=== PATIENT | male | born 1990 | race African-American/Black ===

== ENCOUNTER 2024-10-23 15:18 | Emergency (ER) | payer OTHER ==
[2024-10-23 15:58] LABS: SARS-CoV-2 Antigen CONTROL BLUE LINE VIS/BG OK; SARS-CoV-2 Antigen Rapid Res Negative (Negative)
--- NOTE | 2024-10-23 16:11 | EDPHYS ---
Physician Documentation [facility] Name: Wei Patton Age: 34 yrs Sex: Male : 1990 Arrival Date: 10/23/2024 Time: 15:18 Bed 14 Private MD: ED Physician Victor Hugo Tran HPI: 10/23 15:39 This 34 yrs old Black Male presents to ER via Ambulatory with complaints of Flu ec2 Symptoms. 15:39 Patient arrives today for evaluation of upper respiratory symptoms. Patient been having ec2 cough and congestion as well as headache. No vomiting, no diarrhea.. Historical: - Allergies: 15:31 No Known Allergies; cm10 - Home Meds: 15:31 None [Active]; cm10 - PMHx: 15:31 None; cm10 - PSHx: 15:31 None; cm10 - Immunization history:: Adult Immunizations up to date. - Infectious Disease History:: Denies. - Social history:: Smoking status: Patient reports the use of cigarette tobacco products, denies chronic smoking, but will smoke occasionally. ROS: 15:39 Constitutional: as per hpi ec2 Exam: 15:39 Constitutional: GEN: NAD Head: atraumatic Eyes: EOMI Ears: External ears are ec2 normal. CV: regular rate LUNGS: no respiratory distress, no wheezes or rales or rhonchi ABD: non-distended SKIN: no evidence of rashes MSK: no evidence of trauma Vital Signs: 15:30 BP 119 / 73; Pulse 91; Resp 17; Temp 99.5(O); Pulse Ox 98% on R/A; Weight 106.59 kg; cm10 Height 5 ft. 7 in. ; Pain 7/10; 16:48 BP 115 / 72; Pulse 90; Resp 16; Temp 98.8; Pulse Ox 99% ; me1 15:30 Body Mass Index 36.81 (106.59 kg, 170.18 cm) cm10 15:30 Pain Scale: Adult cm10 MDM: 15:25 Medical Screening Exam initiated ec2 15:39 Data reviewed: vital signs, nurses notes. ED course: Patient arrives today for upper ec2 respiratory symptoms. Examination is revealing for well-appearing nontoxic hemodynamically stable individuals otherwise in no acute distress. Suspect viral infection, will treat the patient with symptomatic medications. Doubt pneumonia given lack of focal lung sounds. Will forego chest x-ray accordingly.. 16:00 ED course: Patient is positive for flu. Will recommend symptomatic management have the ec2 patient follow-up PCP. Return precautions given.. 10/23 15:25 Order name: Influenza Screen (a \T\ B); Complete Time: 15:57 ec2 10/23 15:25 Order name: SARS RAPID; Complete Time: 16:00 ec2 Administered Medications: 16:39 Drug: metoCLOPramide IM 10 mg IM once Route: IM; Site: right deltoid; me1 16:50 Follow up: Response: No adverse reaction; Nausea is decreased me1 16:39 Drug: Ketorolac IM 30 mg IM once Route: IM; Site: left deltoid; me1 16:49 Follow up: Response: No adverse reaction; Pain is decreased me1 16:39 Drug: Acetaminophen PO 1000 mg PO once Route: PO; me1 16:49 Follow up: Response: No adverse reaction; Temperature is decreased; Pain is decreased me1 16:40 Drug: Tessalon Perle PO 200 mg PO once Route: PO; me1 16:50 Follow up: Response: No adverse reaction me1 Disposition Summary: 10/23/24 16:11 Discharge Ordered Notes: Location: Home ec2 Condition: Stable ec2 Diagnosis - Viral infection, unspecified ec2 - Influenza due to identified novel influenza A virus ec2 Followup: ec2 - With: Private Physician - When: - Reason: Recheck today's complaints Discharge Instructions: - Discharge Summary Sheet ec2 - Viral Illness, Adult ec2 Forms: - Work release form me1 - Medication Reconciliation Form ec2 - Antibiotic Education ec2 - Prescription Opioid Use ec2 - Patient Portal Instructions ec2 - Leadership Thank You Letter ec2 Prescriptions: - Compazine 10 mg Oral Tablet - take 1 tablet ORAL route every 8 hours As needed; 20 tablet; Refills: 0, ec2 Product Selection Permitted - Tessalon Perles 100 mg Oral Capsule - take 1 capsule ORAL route every 8 hours As needed; 15 capsule; Refills: 0, ec2 Product Selection Permitted Signatures: Dispatcher [employer] Farhana Slaughter RN RN cm10 Cherie Lau RN RN me1 Victor Hugo Tran MD MD ec2
--- NOTE | 2024-10-23 16:11 | ER ---
Nurse's Notes [facility] Name: Wei Patton Age: 34 yrs Sex: Male : 1990 Arrival Date: 10/23/2024 Time: 15:18 Bed 14 Private MD: Diagnosis: Viral infection, unspecified;Influenza due to identified novel influenza A virus Presentation: 10/23 15:30 Chief complaint: Patient states: Headache, cough, congestion and pain behind eyes onset cm10 this morning. Coronavirus screen: Client denies travel out of the [place] in the last 14 days. Ebola Screen: Patient denies travel to an Ebola-affected area in the 21 days before illness onset. Initial Sepsis Screen: Does the patient meet any 2 criteria? HR > 90 bpm. Does the patient have a suspected source of infection? No. Patient's initial sepsis screen is negative. Risk Assessment: Do you want to hurt yourself or someone else? Patient reports no desire to harm self or others. Onset of symptoms was October 23, 2024. 15:30 Method Of Arrival: Ambulatory cm10 15:30 Acuity: MESHA 4 cm10 Triage Assessment: 15:31 General: Appears in no apparent distress. uncomfortable, Behavior is calm, cooperative. cm10 Pain: Complains of pain in head, right eye and left eye Pain currently is 7 out of 10 on a pain scale. Quality of pain is described as aching, pressure. Neuro: No deficits noted. Level of Consciousness is awake, alert, obeys commands, Oriented to person, place, time, situation, Appropriate for age. Respiratory: No deficits noted. Airway is patent Respiratory effort is even, unlabored, Respiratory pattern is regular, symmetrical. Historical: - Allergies: 15:31 No Known Allergies; cm10 - Home Meds: 15:31 None [Active]; cm10 - PMHx: 15:31 None; cm10 - PSHx: 15:31 None; cm10 - Immunization history:: Adult Immunizations up to date. - Infectious Disease History:: Denies. - Social history:: Smoking status: Patient reports the use of cigarette tobacco products, denies chronic smoking, but will smoke occasionally. Screenin:[address] [facility] ED Fall Risk Assessment (Adult) History of falling in the last 3 months, me1 including since admission No falls in past 3 months (0 pts) Confusion or Disorientation No (0 pts) Intoxicated or Sedated No (0 pts) Impaired Gait No (0 pts) Mobility Assist Device Used No (0 pt) Altered Elimination No (0 pt) Score/Fall Risk Level 0 - 2 = Low Risk Maintained a safe environment, Provided non-skid footwear, Hourly rounding (assess needs \T\ fall precautionary measures) done. Abuse screen: Denies threats or abuse. Nutritional screening: No deficits noted. Tuberculosis screening: No symptoms or risk factors identified. Assessment: 15:42 General: Appears ill, well groomed, well developed, well nourished, Behavior is calm, me1 cooperative, appropriate for age, Reports Headache, cough, congestion and pain behind eyes onset this morning. Pain: Complains of pain in left eye and right eye and head Pain does not radiate. Pain currently is 4 out of 10 on a pain scale. Quality of pain is described as pressure, Pain began gradually, 4 hours ago. Is continuous. Neuro: Level of Consciousness is awake, alert, obeys commands, Oriented to person, place, time, situation, Appropriate for age. Neuro: Reports headache. Cardiovascular: Patient's skin is warm and dry. Respiratory: Reports cough that is since this morning. GI: No signs and/or symptoms were reported involving the gastrointestinal system. : No signs and/or symptoms were reported regarding the genitourinary system. EENT: Reports nasal congestion. Derm: Skin is intact, is healthy with good turgor, Skin is pink, warm \T\ dry. Musculoskeletal: No signs and/or symptoms reported regarding the musculoskeletal system. 16:41 General: Discharge delayed for med wait time.. me1 Vital Signs: 15:30 BP 119 / 73; Pulse 91; Resp 17; Temp 99.5(O); Pulse Ox 98% on R/A; Weight 106.59 kg; cm10 Height 5 ft. 7 in. ; Pain 7/10; 16:48 BP 115 / 72; Pulse 90; Resp 16; Temp 98.8; Pulse Ox 99% ; me1 15:30 Body Mass Index 36.81 (106.59 kg, 170.18 cm) cm10 15:30 Pain Scale: Adult cm10 ED Course: 15:20 Patient arrived in ED. al6 15:25 Victor Hugo Tran MD is Attending Physician. ec2 15:31 Triage completed. cm10 15:31 Arm band placed on right wrist. Patient placed in an exam room, on a stretcher. cm10 15:35 Cherie Lau, RN is Primary Nurse. me1 15:41 COVID swab sent to lab. Flu and/or RSV swab sent to lab. me1 15:42 Patient has correct armband on for positive identification. Bed in low position. Call me1 light in reach. Side rails up X2. Provided Education on: POC. Verbalized understanding.. Client placed on continuous cardiac and pulse oximetry monitoring. NIBP monitoring applied. Pulse ox on. NIBP on. 15:42 No provider procedures requiring assistance completed. Patient did not have IV access me1 during this emergency room visit. Administered Medications: 16:39 Drug: metoCLOPramide IM 10 mg IM once Route: IM; Site: right deltoid; me1 16:50 Follow up: Response: No adverse reaction; Nausea is decreased me1 16:39 Drug: Ketorolac IM 30 mg IM once Route: IM; Site: left deltoid; me1 16:49 Follow up: Response: No adverse reaction; Pain is decreased me1 16:39 Drug: Acetaminophen PO 1000 mg PO once Route: PO; me1 16:49 Follow up: Response: No adverse reaction; Temperature is decreased; Pain is decreased me1 16:40 Drug: Tessalon Perle PO 200 mg PO once Route: PO; me1 16:50 Follow up: Response: No adverse reaction me1 Medication: 15:42 VIS not applicable for this client. me1 Outcome: 16:11 Discharge ordered by . ec2 16:57 Discharged to home ambulatory, with family, me1 16:57 Condition: stable 16:57 Discharge instructions given to patient, family, Instructed on discharge instructions, follow up and referral plans. medication usage, Demonstrated understanding of instructions, follow-up care, medications, Prescriptions given X 2, 16:58 Patient left the ED. me1 Signatures: Farhana Dumont RN RN cm10 Cherie Lau, ACE BELLO me1 Victor Hugo Tran MD MD ec2 Celeste Castaneda6 Corrections: (The following items were deleted from the chart) 15:42 15:30 Chief complaint: Patient states: Headache, cough, congestion and pain behind eyes me1 onset this morning. cm10
[2024-10-23] MEDS ORDERED: BENZONATATE 100 MG CAP PO ONE (16:32)
[2024-10-23] MEDS ORDERED: KETOROLAC 30 MG/ML INJ ONE (16:32)
[2024-10-23] MEDS ORDERED: METOCLOPRAMIDE 10 MG/2mL INJ ONE (16:32)
[2024-10-23] MEDS ORDERED: ACETAMINOPHEN 500 MG TAB ONE (16:32)
[2024-10-23 18:06] VITALS: BP 115/72; TEMP 98.8; O2SAT 99
== END 2024-10-23 16:58 | disposition home or self-care (01) ==
LOC: ER 15:18
DX: J10.1 Influenza due to other identified influenza virus with other respiratory manifestations (principal); F17.210 Nicotine dependence, cigarettes, uncomplicated; Z11.52 Encounter for screening for COVID-19
CPT/HCPCS: 36415; 87804 ×2; 96372; 99284; 87811; J2765

== ENCOUNTER 2025-05-24 11:02 | Emergency (ER) | payer OTHER ==
[2025-05-24] MEDS ORDERED: ONDANSETRON 4 MG/2 ML VIAL ONE (11:37)
[2025-05-24] MEDS ORDERED: KETOROLAC 30 MG/ML INJ ONE (11:37)
[2025-05-24] MEDS ORDERED: NA CHLORIDE 0.9% 1,000 ML ONE ×2 (11:38→12:23)
[2025-05-24] MEDS ORDERED: MORPHINE 4 MG/ML SYR ONE (11:38)
[2025-05-24 11:55] LABS: Absolute Lymphocytes (CBC) 1.7 K/uL (0.7-4.9); Hematocrit 50.6 % (39.6-49.0); Hemoglobin 16.9 g/dL (13.6-17.9); MCH 31.1 pg (27.0-35.0); MCHC 33.4 g/dL (32.0-36.0); MCV 92.9 fL (80-100); MPV 8.2 fL (7.6-11.3); Nucleated RBC Absolute Count 0.0 (0-0); Nucleated Red Blood Cells % 0.1 % (0-0); RBC Red Blood Cell Count 5.45 M/uL (4.33-5.43); White Blood Count 5.70 thou/uL (4.3-10.9)
[2025-05-24 12:12] LABS: ALT/SGPT 27.0 U/L (16-61); AST/SGOT 18.0 U/L (15-37); Albumin 4.1 g/dL (3.4-5.0); Albumin/Globulin Ratio 1.1 (1.1-1.8); Alkaline Phosphatase 61.0 U/L (45-117); Anion Gap 11.4 mEq/L (5.0-15.0); BUN Blood Urea Nitrogen 14.0 mg/dL (7-18); Globulin 3.7 g/dL (2.3-3.5); Glucose Level 137.0 mg/dL (74-106); Lipase 178.0 U/L (13-75); Potassium 3.4 mEq/L (3.5-5.1)
--- NOTE | 2025-05-24 12:17 | RAD REPORT ---
EXAMINATION: CT ABDOMEN AND PELVIS WITH CONTRAST CLINICAL INDICATION: Abdominal pain TECHNIQUE: CT abdomen and pelvis was performed, after the administration of 100 cc Isovue-300.. Sagit pepe and coronal reconstructions were obtained. One or more of the following dose reduction techniques were used: Automated exposure control, adjustment of the mA and kV according to patient si ze, and iterative reconstruction. Unless otherwise specified, incidental findings do not require dedicated imaging follow-up. [id number]. Oral contrast was not given which limits evaluation of bowel and appendix. COMPARISON: .None FINDINGS: Several tiny low-density lesions within the liver are too small to characterize but probably benign. Delay of concentration of contrast within the right kidney. Mild right hydronephrosis. 3 mm calculus mid right ureter. Spleen, left kidney, pancreas and adrenals unremarkable No evidence of diverticulitis. : IMPRESSION: 3 mm calculus mid right ureter results in mild right hydronephrosis
[2025-05-24] MEDS ORDERED: TAMSULOSIN 0.4 MG SR CAP ONE (12:22)
[2025-05-24] MEDS ORDERED: HYDROMORPHONE HCL 1 MG/ML INJ ONE (12:22)
[2025-05-24] MEDS ORDERED: MAGNESIUM SULFATE 1 gm IVPB 1 GM/100 ML BAG IV ONE (12:23)
[2025-05-24 12:53] LABS: Sqamous Epithelial <5 /HPF (None Seen); Urine Culture Reflex Order REFLEXED; Urine Microscopic Reflex YN ORDER UMIC
[2025-05-24] MEDS ORDERED: DIPHENHYDRAMINE 50 MG/ML VIAL ONE (13:12)
--- NOTE | 2025-05-24 13:30 | EDPHYS ---
Physician Documentation [facility] Name: Wei Patton Age: 35 yrs Sex: Male : 1990 Arrival Date: 05/24/2025 Time: 11:02 Bed 2 Private MD: ED Physician Jean Melendrez HPI: 05/24 11:31 This 35 yrs old Black Male presents to ER via Ambulatory with complaints of Flank Pain. sb4 11:31 Patient reports right sided flank pain that began this morning with associated nausea sb4 and vomiting. Does have a history of kidney stones but states that this feels different. Patient is uncooperative during triage secondary to pain and cannot provide much further history. Historical: - Allergies: 11:14 No Known Allergies; ss - Home Meds: 11:14 None [Active]; ss - PMHx: 11:14 kidney stones; ss - PSHx: 11:14 None; ss - Infectious Disease History:: Denies. - Social history:: Smoking status: Patient reports the use of cigarette tobacco products, denies chronic smoking, but will smoke occasionally. ROS: 11:32 Constitutional: Negative for fever, chills, and weight loss, sb4 11:32 Back: Positive for pain at rest, flank pain, on the right, 11:32 All other systems are negative, Exam: 11:32 Head/Face: Normocephalic, atraumatic. Eyes: Extra-ocular motions intact. Periorbital sb4 areas with no swelling, redness, or edema. ENT: Mucous membranes moist. Cardiovascular: Regular rate and rhythm with a normal S1 and S2. Respiratory: No increased work of breathing, no retractions or nasal flaring. Abdomen/GI: Soft, non-tender, no distension. Skin: Warm, dry with normal turgor. Normal color with no rashes, no lesions, and no evidence of cellulitis. 11:32 Constitutional: The patient appears alert, awake, in obvious pain, uncomfortable, tearful 11:32 Back: CVA tenderness, that is moderate, is noted on the right, Vital Signs: 11:13 BP 120 / 70; Pulse 76; Resp 24; Temp 97(TE); Pulse Ox 100% on R/A; Weight 81.65 kg; ss Height 5 ft. 9 in. ; Pain 10/10; 11:13 Body Mass Index 26.58 (81.65 kg, 175.26 cm) ss 11:13 Pain Scale: Adult ss MDM: 11:14 Medical Screening Exam initiated sb4 11:32 Differential diagnosis: nephrolithiasis, pyelonephritis, UTI. sb4 12:20 Independent interpretation of the following test(s) in the Emergency Department CT sb4 Scan: My interpretation is My interpretation of this abdominal pelvis CT scan is small stone in the right mid ureter. 13:29 Data reviewed: vital signs, nurses notes, lab test result(s), radiologic studies, and sb4 as a result, I will discharge patient. Counseling: I had a detailed discussion with the patient and/or guardian regarding the historical points, exam findings, and any diagnostic results supporting the discharge/admit diagnosis, lab results, radiology results, the need for outpatient follow up, a urologist, to return to the emergency department if symptoms worsen or persist or if there are any questions or concerns that arise at home. Special discussion: I discussed with the patient/guardian in detail that at this point there is no indication for admission to the hospital. It is understood, however, that if the symptoms persist or worsen the patient needs to return immediately for re-evaluation. 05/24 11:16 Order name: CBC with Diff; Complete Time: 12:02 sb4 05/24 11:16 Order name: CMP; Complete Time: 12:14 sb4 05/24 11:16 Order name: Lipase; Complete Time: 12:14 sb4 05/24 11:16 Order name: UA Rfx Richard Cult if indicated; Complete Time: 12:56 sb4 05/24 12:59 Order name: Urine Culture EDMT 05/24 11:16 Order name: CT Abd/Pelvis - IV Contrast Only; Complete Time: 12:19 sb4 05/24 11:16 Order name: IV Saline Lock; Complete Time: 11:37 sb4 05/24 11:16 Order name: Labs collected and sent; Complete Time: 11:41 sb4 Administered Medications: 11:42 Drug: NS 0.9% IV 1000 ml IV at 1 bolus Per protocol; to be given as a bolus over 60 bp minutes Route: IV; Rate: 1 bolus; Site: left antecubital; 11:43 Drug: TORadol - Ketorolac IVP 15 mg IVP once Route: IVP; Site: left antecubital; bp 11:43 Drug: Ondansetron IVP 4 mg IVP once; over 2 minutes Route: IVP; Site: left antecubital; bp 11:43 Drug: morphine IVP or IV 4 mg IVP once over 4 mins Route: IVP; Infused Over: 4 mins; bp Site: left antecubital; 12:38 Drug: HYDROmorphone IVP 1 mg IVP once Route: IVP; Site: left antecubital; bp 12:38 Drug: Flomax PO 0.4 mg PO once Route: PO; bp 12:38 Drug: NS 0.9% IV 1000 ml IV at 1000 ml once; to be given as a bolus over 60 minutes bp Route: IV; Rate: 1000 ml; Site: left antecubital; 13:59 Follow up: IV Status: Completed infusion; IV Intake: 1000ml ss 12:39 Drug: Magnesium Sulfate IVPB 1 grams IVPB once over 1 hrs Route: IVPB; Infused Over: 1 bp hrs; Site: left antecubital; 13:16 Drug: diphenhydrAMINE IVP 25 mg IVP once Route: IVP; Site: left antecubital; bp 13:17 Drug: Droperidol IVP 2.5 mg IVP once Route: IVP; Site: left antecubital; bp Disposition: 05/25 08:59 Co-signature as Attending Physician, Jean Melendrez MD I agree with the assessment and raj plan of care. Disposition Summary: 05/24/25 13:29 Discharge Ordered Notes: Location: Home sb4 Problem: new sb4 Symptoms: have improved sb4 Condition: Stable sb4 Diagnosis - Calculus of kidney with calculus of ureter - right, 3mm sb4 Followup: sb4 - With: Angel Tanner MD - When: 1 week - Reason: Recheck today's complaints, Re-evaluation by your physician Discharge Instructions: - Discharge Summary Sheet sb4 - Kidney Stones sb4 Forms: - Prescription Opioid Use sb4 - Patient Portal Instructions sb4 - Leadership Thank You Letter sb4 Prescriptions: - tamsulosin 0.4 mg Oral capsule - take 1 capsule ORAL route daily; 20 capsule; Refills: 0, Product Selection sb4 Permitted - ketorolac 10 mg Oral tablet - take 1 tablet ORAL route every 6 hours as needed for pain; maximum total sb4 duration of 5 days from all oral, intranasal, or parenteral formulations; 12 tablet; Refills: 0, Product Selection Permitted - ondansetron 8 mg Oral Tablet,disintegrating - take 1 tablet ORAL route every 8 hours; 10 tablet; Refills: 0, Product sb4 Selection Permitted - Tylenol-Codeine #3 300mg-30mg Oral tablet - take 2 tablets ORAL route every 6 hours As needed; 20 tablet; Refills: 0, sb4 Product Selection Permitted Signatures: Dispatcher [employer] EDJean Harris MD MD cha Blanchard, Shelby, RN RN ss Lobo King RN RN Laurence Dela Cruz PA-C PAMelanieC sb4 Corrections: (The following items were deleted from the chart) 05/24 11:32 11:18 The patient complains of pain in the left mid back, sb4 sb4 1132 11:31 Patient reports. sb4 sb4
--- NOTE | 2025-05-24 13:30 | ER ---
Nurse's Notes [facility] Name: Wei Patton Age: 35 yrs Sex: Male : 1990 Arrival Date: 05/24/2025 Time: 11:02 Bed 2 Private MD: Diagnosis: Calculus of kidney with calculus of ureter-right, 3mm Presentation: 05/24 11:13 Chief complaint: Patient states: R flank pain that began suddenly this morning. + ss nausea. HX of kidney stones. Coronavirus screen: Client denies travel out of the [place] in the last 14 days. Ebola Screen: Patient denies exposure to infectious person. Patient denies travel to an Ebola-affected area in the 21 days before illness onset. Initial Sepsis Screen: Does the patient meet any 2 criteria? No. Patient's initial sepsis screen is negative. Does the patient have a suspected source of infection? No. Patient's initial sepsis screen is negative. Risk Assessment: Do you want to hurt yourself or someone else? Patient reports no desire to harm self or others. Onset of symptoms was May 24, 2025. 11:13 Method Of Arrival: Ambulatory ss 11:13 Acuity: MESHA 2 ss Historical: - Allergies: 11:14 No Known Allergies; ss - Home Meds: 11:14 None [Active]; ss - PMHx: 11:14 kidney stones; ss - PSHx: 11:14 None; ss - Infectious Disease History:: Denies. - Social history:: Smoking status: Patient reports the use of cigarette tobacco products, denies chronic smoking, but will smoke occasionally. Assessment: 13:35 Reassessment: DC ON HOLD FOR IVF. bp Vital Signs: 11:13 BP 120 / 70; Pulse 76; Resp 24; Temp 97(TE); Pulse Ox 100% on R/A; Weight 81.65 kg; ss Height 5 ft. 9 in. ; Pain 1010; 11:13 Body Mass Index 26.58 (81.65 kg, 175.26 cm) ss 11:13 Pain Scale: Adult ss ED Course: 11:03 Patient arrived in ED. mr 11:14 Triage completed. ss 11:14 Laurence Washington PA-C is PHCP. sb4 11:14 Jean Melendrez MD is Attending Physician. sb4 11:14 Arm band placed on right wrist. ss 11:34 Mary Beth Valencia, RN is Primary Nurse. db 11:37 Inserted saline lock: 18 gauge in left antecubital area, using aseptic technique. Blood ts3 collected. Flushed with 10 mL NS. 11:41 Initial lab(s) drawn, by laborer sawmill, sent to lab. ts3 12:04 CT Abd/Pelvis - IV Contrast Only In Process Unspecified. EDMS 13:29 Angel Tanner MD is Referral Physician. sb4 13:59 No provider procedures requiring assistance completed. IV discontinued, intact, ss bleeding controlled, No redness/swelling at site. Pressure dressing applied. Administered Medications: 11:42 Drug: NS 0.9% IV 1000 ml IV at 1 bolus Per protocol; to be given as a bolus over 60 bp minutes Route: IV; Rate: 1 bolus; Site: left antecubital; 11:43 Drug: TORadol - Ketorolac IVP 15 mg IVP once Route: IVP; Site: left antecubital; bp 11:43 Drug: Ondansetron IVP 4 mg IVP once; over 2 minutes Route: IVP; Site: left antecubital; bp 11:43 Drug: morphine IVP or IV 4 mg IVP once over 4 mins Route: IVP; Infused Over: 4 mins; bp Site: left antecubital; 12:38 Drug: HYDROmorphone IVP 1 mg IVP once Route: IVP; Site: left antecubital; bp 12:38 Drug: Flomax PO 0.4 mg PO once Route: PO; bp 12:38 Drug: NS 0.9% IV 1000 ml IV at 1000 ml once; to be given as a bolus over 60 minutes bp Route: IV; Rate: 1000 ml; Site: left antecubital; 13:59 Follow up: IV Status: Completed infusion; IV Intake: 1000ml ss 12:39 Drug: Magnesium Sulfate IVPB 1 grams IVPB once over 1 hrs Route: IVPB; Infused Over: 1 bp hrs; Site: left antecubital; 13:16 Drug: diphenhydrAMINE IVP 25 mg IVP once Route: IVP; Site: left antecubital; bp 13:17 Drug: Droperidol IVP 2.5 mg IVP once Route: IVP; Site: left antecubital; bp Intake: 13:59 IV: 1000ml; Total: 1000ml. ss Outcome: 13:29 Discharge ordered by . sb4 13:59 Discharged to home ambulatory, 13:59 Condition: good 13:59 Discharge instructions given to patient, Instructed on discharge instructions, follow up and referral plans. medication usage, Demonstrated understanding of instructions, follow-up care, medications, Prescriptions given X 4, 14:00 Patient left the ED. ss Signatures: Dispatcher [employer] EDMN Christal Ham, Jose Garcia mr Rizwana Caldwell, RN RN ss Lobo King, ACE RN Mary Beth Keen, ACE RN Laurence You, PA-C PA-C sb4 Amelia Rose ts3
[2025-05-24 14:05] VITALS: BP 120/70; TEMP 97; O2SAT 100
== END 2025-05-24 14:00 | disposition home or self-care (01) ==
LOC: ER 11:02
DX: N20.2 Calculus of kidney with calculus of ureter (principal); F17.210 Nicotine dependence, cigarettes, uncomplicated
CPT/HCPCS: 96361; 87088; 85025; 81001; 87086; 36415; 83690; 80053; 74177; 96375; 96374; 99284; Q9967; J3475; J1200; J1171; J2405; J1790; J7030 ×2